=== PATIENT | male | born 1975 | race African-American/Black ===

== ENCOUNTER 2017-01-05 10:50 | Emergency (ER) | payer OTHER ==
[~2017-01-05] VITALS: Ht 170.2 cm; Wt 91.0 kg
[~2017-01-05 10:50] MED LIST: PROT40
[2017-01-05 10:53] VITALS: BP 165/107
== END 2017-01-05 16:08 | disposition left against medical advice (07) ==
LOC: ER 14:54
DX: M79.604 Pain in right leg (principal); Z53.21 Procedure and treatment not carried out due to patient leaving prior to being seen by health care provider

== ENCOUNTER 2017-12-03 09:27 | Inpatient (IN) | payer OTHER ==
[~2017-12-03] VITALS: Ht 170.2 cm; Wt 89.8 kg
[2017-12-03] MEDS ORDERED: ASPIRIN 81MG TABLET PO STA (10:11)
[2017-12-03] MEDS ORDERED: IBUPROFEN 600MG TABLET PO ONE (10:15)
[2017-12-03] MEDS ORDERED: NITROGLYCERIN 0.4MG TABLET SL SL PRN ×2 (10:15→13:15)
[2017-12-03] MEDS ORDERED: CLONIDINE 0.2MG TABLET PO ONE (10:15)
[2017-12-03 10:43] LABS: BASOPHILS % 0.6 % (0.0-2.0); HEMATOCRIT. 45.2 % (42.0-52.0); HEMOGLOBIN. 15.4 g/dL (14.0-18.0); LYMPHOCYTES % 29.8 % (20.0-50.0); MEAN CORPUSCULAR HEMOGLOBIN 27.3 pg (28.0-32.0); MONOCYTES % 7.2 % (2.0-8.0); NEUTROPHILS % 60.4 % (40.0-76.0); PLATELET 293 x1000/uL (130-400); RED BLOOD CELL COUNT 5.65 mill/uL (4.7-6.1); RED CELL DISTRIBUTION WIDTH 14.5 % (11.6-14.6)
[2017-12-03 10:50] LABS: CHLORIDE 103 mEq/L (98-107)
[2017-12-03 10:54] LABS: PARTIAL THROMBOPLASTIN TIME 24.9 sec (23.4-31.0); PROTHROMBIN TIME 10.4 sec (9.4-11.6)
[2017-12-03] MEDS ORDERED: TRAMADOL 50MG TABLET PO PRN (13:15)
[2017-12-03] MEDS ORDERED: DOCUSATE SODIUM 100MG CAPSULE PO PRN (13:15)
[2017-12-03] MEDS ORDERED: ACETAMINOPHEN 325MG TABLET PO PRN (13:15)
[2017-12-03] MEDS ORDERED: ONDANSETRON HCL 4MG/2ML VIAL IV PRN (13:15)
[2017-12-03] MEDS ORDERED: GUAIFENESIN 200MG/10ML SUGAR FREE UDC PO PRN (13:15)
[2017-12-03] MEDS ORDERED: MAGNESIUM/ALUMINUM HYDROXIDE/SIMETHICONE 30ML UDC PO PRN (13:15)
[2017-12-03] MEDS ORDERED: CLONIDINE 0.1MG TABLET PO PRN (13:15)
[2017-12-03] MEDS ORDERED: DIPHENHYDRAMINE 50MG/ML VIAL IV PRN (13:15)
[2017-12-03] MEDS ORDERED: LORAZEPAM 0.5MG TABLET PO PRN (13:15)
[2017-12-03] MEDS ORDERED: ZOLPIDEM TARTRATE 5MG TABLET PO PRN (13:15)
[2017-12-03] MEDS ORDERED: IPRATROPIUM/ALBUTEROL 0.5-3(2.5)MG/3ML NEB INH PRN (13:15)
[2017-12-03] MEDS ORDERED: NA PHOS,M-B/NA PHOS,DI-BA ENEMA 118ML PR PRN (13:15)
[2017-12-03 16:03] VITALS: BP 135/90
[2017-12-03 17:00] VITALS: BP 135/90
[2017-12-03] MEDS: ENOXAPARIN 40MG/0.4ML SYR SUBCUT SCH ×2 (17:00→18:45)
[2017-12-03] MEDS: SUCRALFATE 1 G/10 ML UDC PO SCH ×2 (18:45→21:14)
[2017-12-03 19:50] LABS: CREATINE KINASE 621 IU/L (39-308)
[2017-12-03 19:51] LABS: CREATINE KINASE MB FRACTION 0.7 ng/mL (0.5-3.6)
[2017-12-03 20:00] VITALS: BP 161/98
[2017-12-03] MEDS ORDERED: ATORVASTATIN CALCIUM 10MG TABLET PO SCH (21:00)
[2017-12-03] MEDS: METOPROLOL TARTRATE 25MG TABLET PO SCH (21:00)
[2017-12-03] MEDS ORDERED: LISINOPRIL 20MG TABLET PO SCH (21:00)
[2017-12-03] MEDS: FAMOTIDINE 20MG TABLET PO SCH (21:14)
[2017-12-04] VITALS: BP 142/90
[2017-12-04 01:35] LABS: *AMPHETAMINES SCREEN URINE NEGATIVE (NEGATIVE); *BARBITURATES SCREEN URINE NEGATIVE (NEGATIVE); *BENZODIAZEPINES SCREEN URINE NEGATIVE (NEGATIVE)
[2017-12-04 01:36] LABS: *COCAINE SCREEN URINE NEGATIVE (NEGATIVE); CANNABINOID URINE SCREEN NEGATIVE (NEGATIVE); METHADONE URINE SCREEN NEGATIVE (NEGATIVE); OPIATES URINE SCREEN NEGATIVE (NEGATIVE); PHENCYCLIDINE URINE SCREEN NEGATIVE (NEGATIVE)
[2017-12-04 03:36] LABS: CREATINE KINASE 537 IU/L (39-308)
[2017-12-04 03:37] LABS: CREATINE KINASE MB FRACTION 0.9 ng/mL (0.5-3.6)
[2017-12-04 04:00] VITALS: BP 114/76
[2017-12-04 08:00] VITALS: BP 129/86
[2017-12-04] MEDS: METOPROLOL TARTRATE 25MG TABLET PO SCH (08:44)
[2017-12-04] MEDS: SUCRALFATE 1 G/10 ML UDC PO SCH ×2 (08:44→13:38)
[2017-12-04] MEDS: FAMOTIDINE 20MG TABLET PO SCH (08:44)
[2017-12-04] MEDS: ENOXAPARIN 40MG/0.4ML SYR SUBCUT SCH (08:48)
[2017-12-04] MEDS ORDERED: ASPIRIN 325MG EC TABLET PO SCH (09:00)
[2017-12-04 12:00] VITALS: BP 136/92
[2017-12-04 16:00] VITALS: BP 117/83
== END 2017-12-04 16:40 | disposition home or self-care (01) | DRG 392 ==
LOC: ER 09:59 → 7WST 11:17 → EDBEDREQ 11:20 → ENRESERV 14:50
PROVIDERS: ADMIT Internal Medicine; ATTEND Internal Medicine
DX: K21.9 Gastro-esophageal reflux disease without esophagitis (principal); E78.00 Pure hypercholesterolemia, unspecified; E78.5 Hyperlipidemia, unspecified; I10 Essential (primary) hypertension; Z79.82 Long term (current) use of aspirin; Z91.19 Patient's noncompliance with other medical treatment and regimen; Z82.49 Family history of ischemic heart disease and other diseases of the circulatory system; Z82.3 Family history of stroke
CPT/HCPCS: 36415; 71045; 80053; 80061; 80305; 82550; 82553; 83036; 83690; 83880; 84484; 85025; 85610; 85730; 93005; 93306; 93970; J1650